=== PATIENT | female | born 1995 | race Caucasian/White ===

== ENCOUNTER 2017-10-27 12:40 | Emergency (ER) | payer OTHER ==
[2017-10-27 14:33] LABS: HIV (1/2) Antibody/Antigen Non-Reactive (NonReactive); HIV 1/2 INDEX 0.06 S/CO (<1.00); Hep C IgG Ab Non-Reactive (NonReactive); Hep C Index 0.13 S/CO (0-0.79)
[2017-10-27 15:20] LABS: HBSAB Concentration 9.96 mIU/mL; Hep B Surf AB Indeterminate (NonReactive)
== END 2017-10-27 13:30 | disposition home or self-care (01) ==
LOC: ERS 12:40
DX: Z77.21 Contact with and (suspected) exposure to potentially hazardous body fluids (principal); J45.909 Unspecified asthma, uncomplicated
CPT/HCPCS: 36415; 86706; 86803; 87389; 99283

== ENCOUNTER 2017-11-02 15:11 | Outpatient (CLI) | payer OTHER | END 2017-11-02 15:12 | disposition home or self-care (01) | LOC: BICULT 15:11 | PROVIDERS: ATTEND Family Medicine | DX: R22.1 Localized swelling, mass and lump, neck (principal) | CPT/HCPCS: 76536 ==

== ENCOUNTER 2018-06-19 08:09 | Outpatient (CLI) | payer OTHER ==
--- NOTE | 2018-06-19 09:11 | RAD ---
TWO VIEW CHEST: COMPARISON: No prior comparison. INDICATION: Dyspnea. FINDINGS: There is silhouetting of the right hemidiaphragm and obscuration of the costophrenic sulcus. This pr oduces an abnormal contour of the right aspect of the mediastinum. The left lung is hyperinflated. Osseous structures are intact. IMPRESSION: Radiographic findings suggest collapse of the right lower lobe, indeterminate etiology on the basis o f this exam. This may be further assessed with dedicated CT as necessary versus bronchoscopy. A telephone call of findings will be placed to the patient's physician, Dr. Alvaro Zee, subsequent to dictation. CODE CR POS: [id number]
== END 2018-06-19 08:10 | disposition home or self-care (01) ==
LOC: RAD 08:09
PROVIDERS: ATTEND Internal Medicine Critical Care Medicine
DX: R06.00 Dyspnea, unspecified (principal)
CPT/HCPCS: 71046

== ENCOUNTER 2019-12-02 19:39 | Emergency (ER) | payer OTHER | END 2019-12-02 20:37 | disposition home or self-care (01) | LOC: ERS 19:39 | DX: M54.16 Radiculopathy, lumbar region (principal); J45.909 Unspecified asthma, uncomplicated; Z79.899 Other long term (current) drug therapy | CPT/HCPCS: 99283 ==

== ENCOUNTER 2020-09-29 08:01 | Outpatient (CLI) | payer BC ==
[2020-09-29] MEDS ORDERED: Iopamidol-370 76% 500 ML 1 ML ONE (09:27)
== END 2020-09-29 08:02 | disposition home or self-care (01) ==
LOC: BICCT 08:01
PROVIDERS: ATTEND Family Medicine
DX: R93.89 Abnormal findings on diagnostic imaging of other specified body structures (principal); J98.19 Other pulmonary collapse
CPT/HCPCS: 71260; Q9967

== ENCOUNTER 2021-01-22 09:33 | Outpatient (CLI) | payer BC | END 2021-01-22 09:34 | disposition home or self-care (01) | LOC: RAD 09:33 | PROVIDERS: ATTEND Internal Medicine Critical Care Medicine | DX: R06.00 Dyspnea, unspecified (principal); J93.9 Pneumothorax, unspecified; J98.11 Atelectasis | CPT/HCPCS: 71046 ==

== ENCOUNTER 2021-04-16 07:35 | Outpatient (CLI) | payer BC ==
[2021-04-16 08:40] LABS: BHCG - Serum Negative (NEGATIVE); Pregs Control Background? CLEAR/WHITE (CLR/WHITE); Pregs Control Bar Appear? YES (CONTROL BAR)
[2021-04-16 19:56] LABS: SARS-CoV-2 PCR by NAA Not Detected (NotDetected)
== END 2021-04-16 07:36 | disposition home or self-care (01) ==
LOC: LABBT 07:35
PROVIDERS: ATTEND Student in an Organized Health Care Education/Training Program
DX: Z01.812 Encounter for preprocedural laboratory examination (principal); Z20.822 Contact with and (suspected) exposure to COVID-19; R06.1 Stridor; R06.2 Wheezing; J98.8 Other specified respiratory disorders; R05.3 Chronic cough
CPT/HCPCS: 84703; 85014; U0003; U0005

== ENCOUNTER 2021-04-20 07:42 | Day surgery (SDC) | payer BC ==
[2021-04-14 16:09] VITALS: BMI 23.3
[2021-04-20] MEDS ORDERED: EPINEPHrine 1 MG/ML AMP ONE (08:51)
[2021-04-20] MEDS ORDERED: Fentanyl 100 MCG/2 ML VIAL ONE (09:01)
[2021-04-20] MEDS ORDERED: PROPOFOL 0 ML ONE (09:01)
[2021-04-20] MEDS ORDERED: Propofol 1,000 MG/100 ML VIAL IV ONE (09:02)
[2021-04-20] MEDS ORDERED: Ondansetron PF 4 MG/2 ML Vial ONE (09:10)
[2021-04-20] MEDS ORDERED: PROPOFOL 200 MG/20 ML VIAL ONE (09:10)
[2021-04-20] MEDS ORDERED: Lidocaine 1% PF 5 ML VIAL ONE (09:10)
[2021-04-20] MEDS ORDERED: Rocuronium Bromide 10 MG/ML (10ML VIAL) ONE (09:10)
[2021-04-20] MEDS ORDERED: Dexamethasone 20 MG/5 ML VIAL ONE (09:10)
[2021-04-20] MEDS ORDERED: SUGAMMADEX SODIUM 200 MG/2 ML VIAL ONE (09:29)
[2021-04-20] MEDS ORDERED: Albuterol Sulfate 1.25 MG/3 ML NEB ONE (09:43)
[2021-04-20] MEDS ORDERED: Ipratropium Bromide 2.5 ml Neb ONE (09:43)
== END 2021-04-20 11:20 | disposition home or self-care (01) ==
LOC: SDC 07:42
PROVIDERS: ATTEND Student in an Organized Health Care Education/Training Program
PROC: 0CJS8ZZ Inspection of Larynx, Via Natural or Artificial Opening Endoscopic (ICD-10-PCS; principal; 2021-04-20)
PROC: 0BJ08ZZ Inspection of Tracheobronchial Tree, Via Natural or Artificial Opening Endoscopic (ICD-10-PCS; principal; 2021-04-20)
DX: J39.8 Other specified diseases of upper respiratory tract (principal); Q32.1 Other congenital malformations of trachea; J45.909 Unspecified asthma, uncomplicated
CPT/HCPCS: J0171; J1100; J2405; J2704; J3010

== ENCOUNTER 2021-06-10 11:00 | Outpatient (CLI) | payer BC | END 2021-06-10 11:01 | disposition home or self-care (01) | LOC: RAD 11:00 | PROVIDERS: ATTEND Internal Medicine Critical Care Medicine | DX: J98.19 Other pulmonary collapse (principal); R91.8 Other nonspecific abnormal finding of lung field | CPT/HCPCS: 71046 ==

== ENCOUNTER 2021-08-19 09:04 | Outpatient (CLI) | payer BC | END 2021-08-19 09:05 | disposition home or self-care (01) | LOC: RAD 09:04 | PROVIDERS: ATTEND Internal Medicine Critical Care Medicine | DX: R06.00 Dyspnea, unspecified (principal); J98.11 Atelectasis | CPT/HCPCS: 71046 ==

== ENCOUNTER 2021-08-24 08:42 | Outpatient (CLI) | payer BC | END 2021-08-24 08:43 | disposition home or self-care (01) | LOC: RAD 08:42 | PROVIDERS: ATTEND Internal Medicine Critical Care Medicine | DX: R06.00 Dyspnea, unspecified (principal); J98.4 Other disorders of lung | CPT/HCPCS: 71046 ==

== ENCOUNTER 2021-08-26 10:03 | Outpatient (CLI) | payer BC ==
[2021-08-26 11:24] LABS: BHCG - Serum Negative (NEGATIVE); Pregs Control Background? CLEAR/WHITE (CLR/WHITE); Pregs Control Bar Appear? YES (CONTROL BAR)
[2021-08-26 18:14] LABS: SARS-CoV-2 PCR by NAA Not Detected (NotDetected)
== END 2021-08-26 10:04 | disposition home or self-care (01) ==
LOC: LABBT 10:03
PROVIDERS: ATTEND Internal Medicine Critical Care Medicine
DX: Z01.812 Encounter for preprocedural laboratory examination (principal); J98.11 Atelectasis; J45.909 Unspecified asthma, uncomplicated; Z20.822 Contact with and (suspected) exposure to COVID-19
CPT/HCPCS: 84703; U0003; U0005

== ENCOUNTER 2021-08-31 07:24 | Day surgery (SDC) | payer BC ==
[2021-08-27 08:04] VITALS: BMI 24.8
[2021-08-31] MEDS ORDERED: EPINEPHrine 1 MG/10 ML Abboject SYRINGE ONE (09:24)
[2021-08-31] MEDS ORDERED: Midazolam HCl 2 mg/2 ml Vial ONE (09:26)
[2021-08-31] MEDS ORDERED: fentaNYL Citrate/PF 100 MCG/2 ML SYRINGE ONE (09:26)
[2021-08-31] MEDS ORDERED: HYDROmorphone 0.5 MG/0.5 ML SYRINGE ONE (09:26)
[2021-08-31] MEDS ORDERED: SUGAMMADEX SODIUM 200 MG/2 ML VIAL ONE (09:53)
[2021-08-31] MEDS ORDERED: Glycopyrrolate 0.2 MG/ML 5 ML SYRINGE ONE (09:56)
[2021-08-31] MEDS ORDERED: Rocuronium Bromide 10 MG/ML (10ML VIAL) ONE (09:56)
[2021-08-31] MEDS ORDERED: PROPOFOL 200 MG/20 ML VIAL ONE (09:56)
[2021-08-31] MEDS ORDERED: Ondansetron PF 4 MG/2 ML Vial ONE (09:56)
[2021-08-31] MEDS ORDERED: Succinylcholine 200 MG/10 ml SYRINGE FS ONE (09:56)
[2021-08-31] MEDS ORDERED: Dexamethasone 20 MG/5 ML VIAL ONE (09:56)
[2021-08-31] MEDS ORDERED: Lidocaine 1% PF 5 ML VIAL ONE (09:56)
[2021-08-31] MEDS ORDERED: Acetylcysteine 20% 200 MG/ML 30 ML VIAL FS SCH (10:15)
== END 2021-08-31 12:55 | disposition home or self-care (01) ==
LOC: SDC 07:24
PROVIDERS: ATTEND Internal Medicine Critical Care Medicine
PROC: 0BD38ZX Extraction of Right Main Bronchus, Via Natural or Artificial Opening Endoscopic, Diagnostic (ICD-10-PCS; principal; 2021-08-31)
PROC: 0BB38ZX Excision of Right Main Bronchus, Via Natural or Artificial Opening Endoscopic, Diagnostic (ICD-10-PCS; principal; 2021-08-31)
DX: J98.4 Other disorders of lung (principal); J98.11 Atelectasis; J45.909 Unspecified asthma, uncomplicated; Z79.3 Long term (current) use of hormonal contraceptives; Z79.52 Long term (current) use of systemic steroids; Z88.0 Allergy status to penicillin; Z88.1 Allergy status to other antibiotic agents; Z91.018 Allergy to other foods
CPT/HCPCS: 71045; 87070; 87205; 88112; 88305; 88312; J0132; J0171; J1100; J1170; J2250; J2405; J2704

== ENCOUNTER 2021-09-13 14:01 | Outpatient (CLI) | payer BC | END 2021-09-13 14:02 | disposition home or self-care (01) | LOC: RAD 14:01 | PROVIDERS: ATTEND Internal Medicine Critical Care Medicine | DX: R06.00 Dyspnea, unspecified (principal) | CPT/HCPCS: 71046 ==

== ENCOUNTER 2021-09-28 02:17 | Emergency (ER) | payer BC | END 2021-09-28 03:20 | disposition home or self-care (01) | LOC: ERS 02:17 | DX: R07.89 Other chest pain (principal); J45.909 Unspecified asthma, uncomplicated; Z79.899 Other long term (current) drug therapy; Z79.51 Long term (current) use of inhaled steroids | CPT/HCPCS: 71045; 93005 ==

== ENCOUNTER 2021-10-06 08:39 | Outpatient (CLI) | payer BC | END 2021-10-06 08:40 | disposition home or self-care (01) | LOC: RAD 08:39 | PROVIDERS: ATTEND Internal Medicine Critical Care Medicine | DX: R06.00 Dyspnea, unspecified (principal); J93.9 Pneumothorax, unspecified | CPT/HCPCS: 71046 ==

== ENCOUNTER 2021-11-08 13:44 | Outpatient (CLI) | payer BC | END 2021-11-08 13:45 | disposition home or self-care (01) | LOC: RAD 13:44 | PROVIDERS: ATTEND Internal Medicine Critical Care Medicine | DX: R06.00 Dyspnea, unspecified (principal); J94.2 Hemothorax | CPT/HCPCS: 71046 ==

== ENCOUNTER 2021-11-11 14:18 | Outpatient (CLI) | payer BC | END 2021-11-11 14:19 | disposition home or self-care (01) | LOC: RAD 14:18 | PROVIDERS: ATTEND Internal Medicine Critical Care Medicine | DX: R06.00 Dyspnea, unspecified (principal); T79.7XXA Traumatic subcutaneous emphysema, initial encounter; J93.9 Pneumothorax, unspecified; K66.8 Other specified disorders of peritoneum; Z93.8 Other artificial opening status | CPT/HCPCS: 71046 ==

== ENCOUNTER 2021-11-12 10:09 | Outpatient (CLI) | payer BC | END 2021-11-12 10:10 | disposition home or self-care (01) | LOC: RAD 10:09 | PROVIDERS: ATTEND Internal Medicine Critical Care Medicine | DX: J45.909 Unspecified asthma, uncomplicated (principal); J43.9 Emphysema, unspecified | CPT/HCPCS: 71046 ==

== ENCOUNTER 2021-11-15 15:46 | Outpatient (CLI) | payer BC | END 2021-11-15 15:47 | disposition home or self-care (01) | LOC: RAD 15:46 | PROVIDERS: ATTEND Internal Medicine Critical Care Medicine | DX: R06.00 Dyspnea, unspecified (principal) | CPT/HCPCS: 71046 ==